=== PATIENT | female | born 1950 | race Caucasian/White ===

== ENCOUNTER 2018-05-16 09:21 | Inpatient (IN) | payer OTHER ==
[~2018-05-16] VITALS: Ht 152.4 cm; Wt 58.7 kg
[2018-05-16 10:45] LABS: BASOPHILS % 0.3 % (0.0-2.0); EOSINOPHILS % 0.6 % (0.0-5.0); HEMATOCRIT. 39.2 % (36.0-48.0); HEMOGLOBIN. 13.1 g/dL (12.0-16.0); LYMPHOCYTES % 19.2 % (20.0-50.0); MEAN CORPUSCULAR HEMOGLOBIN 28.3 pg (28.0-32.0); MEAN CORPUSCULAR VOLUME 84.6 fL (81.0-99.0); MEAN PLATELET VOLUME 8.7 fl (7.4-10.4); MONOCYTES % 5.6 % (2.0-8.0); NEUTROPHILS % 74.3 % (40.0-76.0); PLATELET 217 x1000/uL (130-400); RED BLOOD CELL COUNT 4.63 mill/uL (4.2-5.4); RED CELL DISTRIBUTION WIDTH 15.4 % (11.6-14.6)
[2018-05-16 10:54] LABS: CHLORIDE 106 mEq/L (98-107)
[2018-05-16] MEDS ORDERED: DEXTROSE 50% WATER 50ML SYRINGE IV PRN (15:15)
[2018-05-16] MEDS ORDERED: ONDANSETRON HCL 4MG/2ML INJ IV PRN (15:15)
[2018-05-16] MEDS ORDERED: CLONIDINE 0.1MG TABLET PO PRN (15:15)
[2018-05-16] MEDS ORDERED: IPRATROPIUM/ALBUTEROL 0.5-3(2.5)MG/3ML NEB INH PRN (15:15)
[2018-05-16] MEDS ORDERED: GUAIFENESIN 200MG/10ML SUGAR FREE UDC PO PRN (15:15)
[2018-05-16] MEDS ORDERED: ZOLPIDEM TARTRATE 5MG TABLET PO PRN (15:15)
[2018-05-16] MEDS ORDERED: ACETAMINOPHEN 325MG TABLET PO PRN (15:15)
[2018-05-16] MEDS ORDERED: LORAZEPAM 0.5MG TABLET PO PRN (15:15)
[2018-05-16] MEDS: BLOOD SUGAR DIAGNOSTIC STRIP TEST SCH ×2 (17:00→21:33)
[2018-05-16] MEDS: INSULIN LISPRO 100 UNITS/ML SUBCUT SCH ×2 (18:20→21:44)
[2018-05-16] MEDS ORDERED: MAGNESIUM/ALUMINUM HYDROXIDE/SIMETHICONE 30ML UDC PO PRN (18:22)
[2018-05-16] MEDS ORDERED: NA PHOS,M-B/NA PHOS,DI-BA ENEMA 118ML PR PRN (18:22)
[2018-05-16] MEDS ORDERED: DOCUSATE SODIUM 100MG CAPSULE PO PRN (19:24)
[2018-05-16] MEDS ORDERED: NITROGLYCERIN 0.4MG TABLET SL SL PRN (19:25)
[2018-05-16] MEDS ORDERED: TRAMADOL 50MG TABLET PO PRN (19:25)
[2018-05-16] MEDS ORDERED: MORPHINE SULFATE 4 MG/ML CPJ (NOT FOR IM USE) IV PRN (19:30)
[2018-05-16 20:00] VITALS: BP 99/38
[2018-05-16] MEDS: FAMOTIDINE 20MG TABLET PO SCH (21:43)
[2018-05-16] MEDS: ENOXAPARIN 80MG/0.8ML SYR SUBCUT SCH (21:44)
[2018-05-16] MEDS ORDERED: ALEN70TA3 PO (22:53)
[2018-05-16] MEDS ORDERED: EZET10TA26 PO (22:53)
[2018-05-16] MEDS ORDERED: NIFE60TA64 PO (22:53)
[2018-05-16] MEDS ORDERED: LOSA25TA12 PO (22:53)
[2018-05-16] MEDS ORDERED: GLIP1TAB4 PO (22:53)
[2018-05-16] MEDS ORDERED: ATOR80TA PO (22:53)
[2018-05-17] VITALS: BP 99/46
[2018-05-17 00:06] LABS: CREATINE KINASE 51 IU/L (26-192); CREATINE KINASE MB FRACTION < 1.0 ng/mL (0.5-3.6)
[2018-05-17 04:00] VITALS: BP 117/47
[2018-05-17] MEDS: BLOOD SUGAR DIAGNOSTIC STRIP TEST SCH ×3 (05:46→17:26)
[2018-05-17 06:53] LABS: *AMPHETAMINES SCREEN URINE NEGATIVE (NEGATIVE); *BARBITURATES SCREEN URINE NEGATIVE (NEGATIVE); *BENZODIAZEPINES SCREEN URINE NEGATIVE (NEGATIVE)
[2018-05-17 06:55] LABS: *COCAINE SCREEN URINE NEGATIVE (NEGATIVE); CANNABINOID URINE SCREEN NEGATIVE (NEGATIVE); METHADONE URINE SCREEN NEGATIVE (NEGATIVE); OPIATES URINE SCREEN NEGATIVE (NEGATIVE); PHENCYCLIDINE URINE SCREEN NEGATIVE (NEGATIVE)
[2018-05-17] MEDS: INSULIN LISPRO 100 UNITS/ML SUBCUT SCH ×3 (07:38→17:49)
[2018-05-17 07:48] LABS: CREATINE KINASE 52 IU/L (26-192); CREATINE KINASE MB FRACTION < 1.0 ng/mL (0.5-3.6)
[2018-05-17 08:00] VITALS: BP 135/54
[2018-05-17] MEDS: FAMOTIDINE 20MG TABLET PO SCH (08:58)
[2018-05-17] MEDS: ENOXAPARIN 80MG/0.8ML SYR SUBCUT SCH (08:59)
[2018-05-17] MEDS ORDERED: ASPIRIN 325MG EC TABLET PO SCH (09:00)
[2018-05-17 12:00] VITALS: BP 132/58
[2018-05-17] MEDS ORDERED: REGADENOSON 0.4 MG/5 ML IV ONE (12:30)
[2018-05-17] MEDS ORDERED: LOSARTAN POTASSIUM 25 MG TABLET PO SCH (12:30)
[2018-05-17 16:00] VITALS: BP 118/65
[2018-05-17 16:50] VITALS: BP 118/65
[2018-05-17] MEDS ORDERED: FAMOTIDINE 20MG TABLET PO SCH (21:00)
[2018-05-17] MEDS ORDERED: ENOXAPARIN 60MG/0.6ML SYR SUBCUT SCH (21:00)
[2018-05-17] MEDS ORDERED: ATORVASTATIN CALCIUM 20MG TABLET PO SCH (21:00)
[2018-05-18] MEDS ORDERED: FAMOTIDINE 20MG TABLET PO SCH (09:00)
== END 2018-05-17 18:45 | disposition short-term general hospital (02) | DRG 310 ==
LOC: ER 09:21 → 7WST 11:38 → EDBEDREQ 11:41 → ENRESERV 17:54
PROVIDERS: ADMIT Internal Medicine; ATTEND Internal Medicine
DX: I44.7 Left bundle-branch block, unspecified (principal); E11.9 Type 2 diabetes mellitus without complications; E78.00 Pure hypercholesterolemia, unspecified; E66.9 Obesity, unspecified; F17.210 Nicotine dependence, cigarettes, uncomplicated; M19.90 Unspecified osteoarthritis, unspecified site; I10 Essential (primary) hypertension; R79.89 Other specified abnormal findings of blood chemistry; Z90.49 Acquired absence of other specified parts of digestive tract; Z88.8 Allergy status to other drugs, medicaments and biological substances; Z71.6 Tobacco abuse counseling
CPT/HCPCS: 36415; 71045; 80061; 80305; 82550; 82553; 82962; 83036; 83880; 84484; 93005; 93306; 93970; 99285; J1650; J1815

== ENCOUNTER 2019-03-26 10:07 | Inpatient (IN) | payer OTHER ==
[~2019-03-26] VITALS: Ht 134.6 cm; Wt 77.1 kg
[2019-03-26] VITALS (9 sets, daily range): BP systolic 95–136; BP diastolic 50–89
[~2019-03-26 10:07] MED LIST: ATOR80TA PO; LOSA25TA26 PO
[2019-03-26] MEDS ORDERED: FAMOTIDINE 20MG/2ML VIAL IV STA (10:18)
[2019-03-26] MEDS ORDERED: ASPIRIN 81MG TABLET PO ONE (10:45)
[2019-03-26 10:46] LABS: BASOPHILS % 0.4 % (0.0-2.0); EOSINOPHILS % 0.9 % (0.0-5.0); HEMATOCRIT. 39.9 % (36.0-48.0); HEMOGLOBIN. 13.2 g/dL (12.0-16.0); LYMPHOCYTES % 11.5 % (20.0-50.0); MEAN CORPUSCULAR HEMOGLOBIN 26.8 pg (28.0-32.0); MEAN CORPUSCULAR VOLUME 81.1 fL (81.0-99.0); MEAN PLATELET VOLUME 8.5 fl (7.4-10.4); MONOCYTES % 0.4 % (2.0-8.0); NEUTROPHILS % 86.8 % (40.0-76.0); PLATELET 238 x1000/uL (130-400); RED BLOOD CELL COUNT 4.92 mill/uL (4.2-5.4); RED CELL DISTRIBUTION WIDTH 16.4 % (11.6-14.6)
[2019-03-26 10:54] LABS: CHLORIDE 105 mEq/L (98-107)
[2019-03-26 10:55] LABS: PARTIAL THROMBOPLASTIN TIME 26.9 sec (23.4-31.0); PROTHROMBIN TIME 10.5 sec (9.6-11.0)
[2019-03-26] MEDS ORDERED: HYDROCODONE/ACETAMINOPHEN 5/325MG TABLET PO PRN (11:30)
[2019-03-26] MEDS ORDERED: MORPHINE SULFATE 2 MG/ML CPJ (NOT FOR IM USE) IV PRN (11:30)
[2019-03-26] MEDS ORDERED: IPRATROPIUM/ALBUTEROL 0.5-3(2.5)MG/3ML NEB HHN PRN (11:30)
[2019-03-26] MEDS ORDERED: DIPHENHYDRAMINE 50MG/ML VIAL IV PRN (11:30)
[2019-03-26] MEDS ORDERED: DOCUSATE SODIUM 100MG CAPSULE PO PRN (11:30)
[2019-03-26] MEDS ORDERED: GUAIFENESIN 200MG/10ML SUGAR FREE UDC PO PRN (11:30)
[2019-03-26] MEDS ORDERED: ONDANSETRON HCL 4MG/2ML INJ IV PRN (11:30)
[2019-03-26 11:47] LABS: PHOSPHORUS 2.7 mg/dL (2.5-4.9)
[2019-03-26 11:51] LABS: T4 FREE 1.32 ng/dL (0.76-1.46)
[2019-03-26 13:21] LABS: HEPATITIS B SURFACE ANTIGEN NEGATIVE
[2019-03-26 13:50] LABS: HEPATITIS A AB IGM NEGATIVE (NEGATIVE)
[2019-03-26] MEDS ORDERED: LOSARTAN POTASSIUM 50 MG TABLET PO SCH (15:30)
[2019-03-26] MEDS ORDERED: POTASSIUM CHLORIDE 20MEQ TABLET SR PO NR (16:15)
[2019-03-26] MEDS: LOSARTAN POTASSIUM 50 MG TABLET PO SCH (17:00)
[2019-03-26] MEDS ORDERED: SODIUM CHLORIDE 0.45% 1,000 ML IV ONE (17:45)
[2019-03-26] MEDS: ACETAMINOPHEN 325MG TABLET PO PRN (18:14)
[2019-03-26] MEDS ORDERED: DEXTROSE 50% WATER 50ML SYRINGE IV PRN (18:15)
[2019-03-26 20:59] LABS: T4 FREE 1.46 ng/dL (0.76-1.46)
[2019-03-26] MEDS: INSULIN LISPRO 100 UNITS/ML SUBCUT SCH (21:00)
[2019-03-26] MEDS: BLOOD SUGAR DIAGNOSTIC STRIP TEST SCH (21:02)
[2019-03-27] VITALS (13 sets, daily range): BP systolic 100–143; BP diastolic 34–81
[2019-03-27] MEDS: SODIUM CHLORIDE 0.9% 1,000 ML IV SCH ×2 (05:46→16:12)
[2019-03-27] MEDS: BLOOD SUGAR DIAGNOSTIC STRIP TEST SCH ×4 (05:52→21:00)
[2019-03-27] MEDS: ACETAMINOPHEN 325MG TABLET PO PRN ×2 (06:34→16:11)
[2019-03-27 06:54] LABS: HEMATOCRIT. 36.3 % (36.0-48.0); HEMOGLOBIN. 11.8 g/dL (12.0-16.0); MEAN CORPUSCULAR HEMOGLOBIN 26.3 pg (28.0-32.0); MEAN CORPUSCULAR VOLUME 81.1 fL (81.0-99.0); MEAN PLATELET VOLUME 8.9 fl (7.4-10.4); PLATELET 189 x1000/uL (130-400); RED BLOOD CELL COUNT 4.47 mill/uL (4.2-5.4); RED CELL DISTRIBUTION WIDTH 16.1 % (11.6-14.6)
[2019-03-27 07:08] LABS: CHLORIDE 105 mEq/L (98-107)
[2019-03-27] MEDS: INSULIN LISPRO 100 UNITS/ML SUBCUT SCH ×4 (07:20→22:03)
[2019-03-27 07:24] LABS: LDL CHOLESTEROL 35 mg/dL (5-100)
[2019-03-27 07:25] LABS: HDL CHOLESTEROL 51 mg/dL (40-59)
[2019-03-27 08:37] LABS: PLATELET ESTIMATE NORMAL
[2019-03-27] MEDS: ASPIRIN 81MG EC TABLET PO SCH (09:12)
[2019-03-27] MEDS: LOSARTAN POTASSIUM 50 MG TABLET PO SCH ×3 (09:12→22:04)
[2019-03-27] MEDS: PIPERACILLIN/TAZOBACTAM 3.375 G in DEXT 5% WATER 100 ML IV SCH ×3 (11:03→22:03)
[2019-03-27] MEDS ORDERED: EZET10TA13 PO (19:25)
[2019-03-27] MEDS ORDERED: METO25TA6 MT (19:25)
[2019-03-27] MEDS ORDERED: ATOR-2 PO (19:29)
[2019-03-27] MEDS ORDERED: GLIP1TAB5 PO (19:29)
[2019-03-28] VITALS (10 sets, daily range): BP systolic 99–150; BP diastolic 45–93
[2019-03-28] MEDS: SODIUM CHLORIDE 0.9% 1,000 ML IV SCH ×2 (03:26→16:35)
[2019-03-28] MEDS: PIPERACILLIN/TAZOBACTAM 3.375 G in DEXT 5% WATER 100 ML IV SCH ×3 (05:06→16:34)
[2019-03-28 05:15] LABS: HIV SCREEN 4G Non Reactive (Non Reactive)
[2019-03-28] MEDS: BLOOD SUGAR DIAGNOSTIC STRIP TEST SCH ×2 (06:43→11:50)
[2019-03-28] MEDS: INSULIN LISPRO 100 UNITS/ML SUBCUT SCH ×2 (06:44→14:40)
[2019-03-28 06:45] LABS: HEMOGLOBIN. 11.5 g/dL (12.0-16.0); MEAN CORPUSCULAR HEMOGLOBIN 26.4 pg (28.0-32.0); MEAN PLATELET VOLUME 8.7 fl (7.4-10.4); PLATELET 144 x1000/uL (130-400); RED BLOOD CELL COUNT 4.38 mill/uL (4.2-5.4); RED CELL DISTRIBUTION WIDTH 16.3 % (11.6-14.6)
[2019-03-28 06:54] LABS: CHLORIDE 107 mEq/L (98-107)
[2019-03-28] MEDS: ASPIRIN 81MG EC TABLET PO SCH (09:14)
[2019-03-28] MEDS: LOSARTAN POTASSIUM 50 MG TABLET PO SCH (09:15)
[2019-03-28] MEDS: ACETAMINOPHEN 325MG TABLET PO PRN (10:45)
[2019-03-28 16:11] LABS: PLATELET ESTIMATE NORMAL
== END 2019-03-28 17:40 | disposition short-term general hospital (02) | DRG 446 ==
LOC: ER 10:21 → 3WST 10:46 → EDBEDREQ 10:49 → EDBEDREQSVC 10:49 → EDBEDREQTM 10:49 → ENRESERV 11:55 → CANRESERV 11:55 → ENRESERV 13:07
PROVIDERS: ADMIT Internal Medicine; ATTEND Internal Medicine
DX: K83.1 Obstruction of bile duct (principal); K57.90 Diverticulosis of intestine, part unspecified, without perforation or abscess without bleeding; N20.0 Calculus of kidney; Z90.49 Acquired absence of other specified parts of digestive tract; Z82.49 Family history of ischemic heart disease and other diseases of the circulatory system; E11.9 Type 2 diabetes mellitus without complications; I44.7 Left bundle-branch block, unspecified; E03.9 Hypothyroidism, unspecified; E78.00 Pure hypercholesterolemia, unspecified; M19.90 Unspecified osteoarthritis, unspecified site; R74.0 Nonspecific elevation of levels of transaminase and lactic acid dehydrogenase [LDH]; R74.8 Abnormal levels of other serum enzymes; E78.5 Hyperlipidemia, unspecified; I11.9 Hypertensive heart disease without heart failure; K83.8 Other specified diseases of biliary tract; Z79.84 Long term (current) use of oral hypoglycemic drugs; Z88.9 Allergy status to unspecified drugs, medicaments and biological substances
CPT/HCPCS: 36415; 71045; 74176; 74181; 76700; 80048; 80061; 80076; 82105; 82248; 82378; 82962; 83036; 83735; 84100; 84439; 84443; 84481; 84484; 86301; 86705; 86709; 86803; 87340; 87389; 93005; 93306; 93970; 99291; J1815; J2543; J3490; J7060